=== PATIENT | female | born 2000 | race Hispanic/Latino ===

== ENCOUNTER 2023-11-21 06:41 | Observation (INO) | payer BC ==
[2023-11-21] MEDS ORDERED: fentaNYL 50 mcg/mL 1 mL Vial ONE (08:17)
[2023-11-21] MEDS ORDERED: PROPOFOL 40 ML ONE (08:17)
[2023-11-21] MEDS ORDERED: Lidocaine 1% PF 5 ML VIAL ONE (08:18)
[2023-11-21] MEDS ORDERED: Ondansetron ODT 4 MG TAB PO PRN (08:23)
[2023-11-21] MEDS ORDERED: HYDROcodone/Acetaminophen 5/325 mg Tablet PO PRN (08:23)
[2023-11-21] MEDS ORDERED: Ondansetron PF 4 MG/2 ML Vial ONE (08:50)
[2023-11-21] MEDS ORDERED: Dexamethasone 20 MG/5 ML VIAL ONE (08:50)
[2023-11-21] MEDS ORDERED: Oxymetazoline HCl 0.05% ( 15 ML ) ONE (09:53)
[2023-11-21] MEDS ORDERED: SUGAMMADEX SODIUM 200 MG/2 ML VIAL ONE ×2 (10:20→10:46)
[2023-11-21 12:27] VITALS: BMI 43.9
[2023-11-21] MEDS: Acetaminophen 325 MG TAB PO SCH ×2 (12:55→17:21)
[2023-11-21] MEDS: Enoxaparin 40 MG (0.4 mL) SYRINGE SC SCH (14:06)
[2023-11-21] MEDS: Ibuprofen 600 MG TAB PO SCH (15:15)
[2023-11-22 09:34] VITALS: BP 116/62; TEMP 98.2
== END 2023-11-22 09:35 | disposition home or self-care (01) ==
LOC: CSHSDC 06:41 → CSHTELE 12:09
PROVIDERS: ADMIT Otolaryngology; ATTEND Otolaryngology
PROC: 0CBQ0ZZ Excision of Adenoids, Open Approach (ICD-10-PCS; principal; 2023-11-22)
PROC: 0CBPXZZ Excision of Tonsils, External Approach (ICD-10-PCS; 2023-11-22)
DX: J03.91 Acute recurrent tonsillitis, unspecified (principal); J35.01 Chronic tonsillitis
CPT/HCPCS: 88304; J1100; J2405; J2704; J3010